=== PATIENT | male | born 1995 | race Hispanic/Latino ===

== ENCOUNTER 2018-08-12 12:32 | Emergency (ER) | payer BC ==
[2018-08-12] MEDS ORDERED: Tdap Vaccine 0.5 ml Vial (10-64 yrs) IM ONE ×2 (13:22→14:14)
--- NOTE | 2018-08-12 13:53 | ED PDOC ---
HPI: Wound Care - HPI Time Seen by Provider: 08/12/18 13:07 Chief Complaint (Nursing): Abnormal Skin Integrity Chief Complaint (Provider): Forehead Laceration History Per: Patient Exam Limitations: no limitations Onset/Duration Of Symptoms: Mins (prior to arrival) Current Symptoms Are (Timing): Still Present Additional Complaint(s): 23 year old male presents to the ED for evaluation of a forehead laceration. Prior to arrival, patient reports working a job in [employer] [place] for [employer] when by accident, the battery of a drill struck him in the head, causing a small laceration. Denies headache, loss of consciousness, dizziness, visual changes, pain at laceration site, and/or taking any medications prior to arrival. Tetanus not up to date PMD: none provided Past Medical History Reviewed: Historical Data, Nursing Documentation, Vital Signs - Medical History PMH: No Chronic Diseases - Surgical History Other surgeries: deviated septum repair - Family History Family History: States: Unknown Family Hx - Social History Current smoker - smoking cessation education provided: No Alcohol: Social Drugs: Denies - Home Medications Home Medications: Ambulatory Orders Medication Instructions Recorded RX: Bacitracin Ointment 1 applic TOP BID #1 tube 08/12/18 [Bacitracin] RX: Naproxen 500 mg PO BID PRN #20 tab 08/12/18 - Allergies Allergies/Adverse Reactions: Allergies Allergy/AdvReac Type Severity Reaction Status Date / Time No Known Allergies Allergy Verified 08/12/18 13:04 Review of Systems ROS Statement: Except As Marked, All Systems Reviewed And Found Negative Eyes: Negative for: Vision Change Skin: Positive for: Other (forehead laceration) Neurological: Negative for: Headache, Dizziness, Other (loss of consciousness) Physical Exam - Reviewed Nursing Documentation Reviewed: Yes Vital Signs Reviewed: Yes - Physical Exam Comments: GENERAL APPEARANCE: Patient is awake, alert, oriented x 3, in no acute distress. Resting comfortably. SKIN: Warm, dry; (-) cyanosis; (-) rash. HEAD: (+) .75cm superficial, horizontal, linear laceration to mid forehead, (-) active bleeding, (-) tenderness, (-) edema, (-) ecchymosis, (-) palpable bony deformity EYES: (-) periorbital tenderness or swelling ENMT: (-) nasal/facial bone tenderness (-) sinus tenderness; mucous membranes are moist. NECK: Supple, FROM (-) tenderness, (-) stiffness, (-) meningismus, (-) lymphadenopathy. CHEST AND RESPIRATORY: (-) rales, (-) rhonchi, (-) wheezes; breath sounds equal bilaterally. Respirations even and nonlabored. HEART AND CARDIOVASCULAR: (-) irregularity EXTREMITIES: (-) deformity. NEURO AND PSYCH: Mental status as above. cloth bleaching range tender: Pupils equal and reactive; EOMI and painless; (-) facial asymmetry; tongue and uvula midline. Strength symmetr ic. Cerebellar tests intact. Cranial nerves intact. Gait: steady. Speech: clear. Procedure: Wound Repair - Time Performed Time Performed: 13:50 - Time Out Time Out: Site verified, Patient ID confirmed - Consent Obtained Consent obtained: Verbal - Performed by Performed by: Mid-level Provider (Clifford LOPEZ) - Indications Indication(s):: Laceration - Location Location:: Face Shape:: Linear Dimensions Length cm: .75 Depth:: Epidermis - Debris Debris:: None - Irrigated Irrigated with ml of normal saline: 50 - Complexity Complexity:: Simple (one layer) - Wound repair method [place]:: Tissue glue - Complications Complications: None. - Patient tolerated procedure Patient Tolerated Procedure:: Well Medical Decision Making Medical Decision Making: Initial Impression: forehead laceration Time: 1320 Initial Plan: --Tetanus booster --Wound irrigated with saline and explored. No FB and no deep tissue involvement. --Dermabond wound closure 1350 Wound closure performed with Dermabond by Clifford LOPEZ. See procedure note. Patient educated on adhesive wound care. 1415 On re-evaluation, patient reports improvement of symptoms. On exam, patient remains AAOx3, in no acute distress. Vitals stable. Lab/Diagnostic results d/w the patient in great detail. Diagnosis of forehead laceration, minor head injury d/w the patient. Based on history, exam and diagnostic results, plan will be for outpatient follow up with clinic. Patient instructed to follow-up with pmd / referral provided / the clinic in 1- 2 days without fail. Advised to take medication as prescribed. Return to the emergency room at any time for any new or worsening symptoms. Patient states he fully agrees with and understands discharge instructions. States that he agrees with the plan and disposition. Verbalized and repeated discharge instructions and plan. I have given the patient opportunity to ask any additional questions. ----- Scribe Attestation: Documented by Zina Mena, acting as a scribe for Nelda Horton PA-C. Provider Scribe Attestation: All medical record entries made by the Scribe were at my direction and p ersonally dictated by me. I have reviewed the chart and agree that the record accurately reflects my personal performance of the history, physical exam, medical decision making, and the department course for this patient. I have also personally directed, reviewed, and agree with the discharge instructions and disposition. Disposition - Clinical Impression Clinical Impression: Forehead laceration, Minor head injury - Patient ED Disposition Is Patient to be Admitted: No Counseled Patient/Family Regarding: Studies Performed, Diagnosis, Need For Followup, Rx Given - Disposition Referrals: [facility] [Outside] Disposition: Routine/Home Disposition Time: 14:15 Condition: STABLE Additional Instructions: The emergency medical care you received today was directed at your acute symptoms. If you were prescribed any medication, please fill it and take as directed. It may take several days for your symptoms to resolve. Return to the Emergency Department if your symptoms worsen, do not improve, or if you have any other problems. Please contact your doctor in 2 days for re-evaluation and follow up / or call o ne of the physicians/clinics you have been referred to that are listed on the Patient Visit Information form that is included in your discharge packet. Bring any paperwork you were given at discharge with you along with any medications you are taking to your follow up visit. Our treatment cannot replace ongoing medical care by a primary care provider (PCP) outside of the emergency department. Prescriptions: RX: Bacitracin Ointment [Bacitracin] 1 applic TOP BID #1 tube RX: Naproxen 500 mg PO BID PRN #20 tab PRN Reason: pain/headache Instructions: Laceration Repair With Glue (DC), Wound Care (DC), Minor Head Injury Forms: [employer] (Vietnamese) Print Language: CROATIAN - POA Present On Arrival: None
[2018-08-12 14:22] VITALS: BP 114/81; PULSE 63; RESP 18; TEMP 97.8; O2SAT 100
== END 2018-08-12 15:09 | disposition home or self-care (01) ==
LOC: H.ER 12:32
DX: S01.81XA Laceration without foreign body of other part of head, initial encounter (principal); W22.8XXA Striking against or struck by other objects, initial encounter; Y99.0 Civilian activity done for income or pay